=== PATIENT | female | born 1960 | race Caucasian/White ===

== ENCOUNTER 2018-03-19 11:44 | Outpatient (CLI) | payer OTHER ==
--- NOTE | 2018-03-19 14:15 | XRAY Report ---
Reason: PAIN IN THORACIC SPINE Procedure Date: 03/19/2018 Accession Number: [id number] / [id number] Procedure: XR - Thoracic Spine 2 View CPT Code: FULL RESULT: EXAM: THORACIC SPINE RADIOGRAPHY EXAM DATE: 03/19/2018 12:00 PM. CLINICAL HISTORY: Pain in thoracic spine. COMPARISON: None. TECHNIQUE: 2 views. FINDINGS: Alignment: No overt spondylolisthesis or scoliosis. Bones: No fractures or bone lesions. Disks: Mild marginal osteophytosis. Disk heights are generally maintained. Soft Tissues: Normal. The visualized lungs and cardiomediastinal silhouette are normal. IMPRESSION: Mild multilevel degenerative changes without overt compression fracture. RADIA
== END 2018-03-19 11:45 | disposition home or self-care (01) ==
LOC: DI 11:44
DX: M51.34 Other intervertebral disc degeneration, thoracic region (principal)
CPT/HCPCS: 72070

== ENCOUNTER 2018-06-16 09:32 | Emergency (ER) | payer MEDICAID, OTHER ==
[2018-06-16] MEDS ORDERED: DEXAMETHASONE 10 MG/ML VIAL PO STA (11:20)
--- NOTE | 2018-06-16 11:23 | ED Physician Documentation ---
PD HPI URI - Stated complaint Stated Complaint: COUGHING/CONGESTION - Chief complaint Chief Complaint: Resp - History obtained from History obtained from: Patient - History of Present Illness Timing - onset: How many days ago (4) Timing duration: Days (4) Timing details: Gradual onset, Still present Associated symptoms: Nasal congestion, Rhinorrhea, Sinus pain, Productive cough. No: Dyspnea Contributing factors: No: Sick contact Improves by: Rest, Medication Similar symptoms before: Has not had sx before Recently seen: Not recently seen - Additional information Additional information: 58-year-old smoking female has developed cough and congestion she has some sinus pressure and phlegm production. She denies any shortness of breath wheezing or chest pain. She has not had fever. She does not usually cough up phlegm. Review of Systems Constitutional: denies: Fever Eyes: denies: Decreased vision Ears: denies: Ear pain Nose: reports: Rhinorrhea / runny nose, Congestion, Sinus pressure / pain Throat: denies: Sore throat Cardiac: denies: Chest pain / pressure, Palpitations Respiratory: reports: Cough. denies: Dyspnea GI: denies: Vomiting PD PAST MEDICAL HISTORY - Past Surgical History Past Surgical History: Yes /CHIEF PSYCHOLOGY: Tubal ligation - Present Medications Home Medications: Ambulatory Orders Medication Instructions Recorded Confirmed Amox/Clav 875/125 [Augmentin] 1 each PO Q12H #20 tablet 06/16/18 Benzonatate [Tessalon Perle] 100 - 200 mg PO TID PRN #30 capsule 06/16/18 - Allergies Allergies/Adverse Reactions: Allergies Allergy/AdvReac Type Severity Reaction Status Date / Time No Known Drug Allergies Allergy Verified 06/16/18 09:51 - Social History Does the pt smoke?: Yes Smoking Status: Current every day smoker Does the pt drink ETOH?: No Does the pt have substance abuse?: No - Immunizations Immunizations are current?: Yes PD ED PE NORMAL - Vitals Vital signs reviewed: Yes (hypertensive mild ) - General General: Alert and oriented X 3, No acute distress, Well developed/nourished, Other (Smells heavily of tobacco.) - HEENT HEENT: Atraumatic, PERRL, EOMI, Pharynx benign, Other (Right TM is inflamed in the basement with disortion of the landmarks. The left is clear. There is sinus point tenderness to the left maxillary sinus and the right is non-tender. ) - Neck Neck: Supple, no meningeal sign, No bony TTP - Cardiac Cardiac: RRR, No murmur - Respiratory Respiratory: No respiratory distress, Other (scattered wheezes low pitched with good air movement. 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, No motor deficit, No sensory deficit, Normal speech Eye Opening: Spontaneous Motor: Obeys Commands Verbal: Oriented GCS Score: 15 - Psych Psych: Normal mood, Normal affect Results - Vitals Vitals: Vital Signs - 24 hr 06/16/18 09:49 Temperature 36.2 C L Heart Rate 90 Respiratory 18 Rate Blood Pressure 132/84 H O2 Saturation 94 Oxygen O2 Source Room air PD MEDICAL DECISION MAKING - ED course Complexity details: considered differential, d/w patient ED course: 58-year-old female with productive cough has otitis and sinusitis on exam she is administered dexamethasone 10 mg orally we will place her on some Augmentin and provide some Tessalon Perles. Departure - Departure Disposition: 01 Home, Self Care Clinical Impression: Otitis media Qualifiers: Otitis media type: suppurative Chronicity: acute Laterality: right Recurrence: not specified as recurrent Spontaneous tympanic membrane rupture: without spontaneous rupture Qualified Code(s): H66.001 - Acute suppurative otitis media without spontaneous rupture of ear drum, right ear Sinusitis Qualifiers: Sinusitis location: maxillary Chronicity: acute Recurrence: not specified as recurrent Qualified Code(s): J01.00 - Acute maxillary sinusitis, unspecified Condition: Stable Instructions: ED Sinusitis Abx Tx, ED Otitis Media Acute Adult Follow-Up: [facility] [Provider Group] Prescriptions: Amox/Clav 875/125 [Augmentin] 1 each PO Q12H #20 tablet Benzonatate [Tessalon Perle] 100 - 200 mg PO TID PRN #30 capsule PRN Reason: Cough
[2018-06-16 11:35] VITALS: BP 155/80
== END 2018-06-16 11:32 | disposition home or self-care (01) ==
LOC: ED 09:32
DX: H66.001 Acute suppurative otitis media without spontaneous rupture of ear drum, right ear (principal); J01.00 Acute maxillary sinusitis, unspecified; F17.200 Nicotine dependence, unspecified, uncomplicated
CPT/HCPCS: 99283

== ENCOUNTER 2018-10-04 08:14 | Outpatient (CLI) | payer MEDICAID ==
--- NOTE | 2018-10-04 10:07 | CT Report ---
Reason: NICOTINE DEPENDENCY Procedure Date: 10/04/2018 Accession Number: [id number] / [id number] Procedure: CT - Low Dose Lung Cancer Screen CPT Code: FULL RESULT: EXAM CT LUNG SCREEN EXAM DATE: 10/04/2018 08:35 AM. HISTORY: 58-year-old patient with [id number] smoking history. Currently smoking: Yes. COMPARISON: None. TECHNIQUE: CT examination of the entire thorax without contrast was performed using low-dose technique. Thin section coronal, axial, sagittal and MIP axial images were obtained. In accordance with CT protocol optimization, one or more of the following dose reduction techniques were utilized for this exam: automated exposure control, adjustment of mA and/or KV based on patient size, or use of iterative reconstructive technique. FINDINGS: Nodules: Right upper lobe: None. Right middle lobe: None. Right lower lobe: 3 mm fissure based nodule image 105 series 5. Left upper lobe: None. Left lower lobe: None. Emphysema: Mild. Pleura: Right apical pleural thickening, 0.4 thick and 2.1 cm wide on image 50 series 7. Aorta: Unremarkable. Mediastinum: Unremarkable. Coronary calcifications: None. Other pulmonary findings: None. Other extrapulmonary findings: None. IMPRESSION: Lung-RADS ASSESSMENT CATEGORY: 2 - benign appearance. Probability of malignancy: Less than 1% RECOMMENDATION: Continue annual screening low-dose chest CT as per lung RADS guidelines. RADIA
== END 2018-10-04 08:15 | disposition home or self-care (01) ==
LOC: DI 08:14
PROVIDERS: ATTEND Nurse Practitioner
DX: F17.210 Nicotine dependence, cigarettes, uncomplicated (principal); R91.1 Solitary pulmonary nodule; J43.9 Emphysema, unspecified

== ENCOUNTER 2019-02-10 07:36 | Emergency (ER) | payer MEDICAID ==
[2019-02-10 07:48] VITALS: BP 136/75
--- NOTE | 2019-02-10 08:09 | ED Physician Documentation ---
PD HPI URI - Stated complaint Stated Complaint: COUGH - Chief complaint Chief Complaint: Resp - History obtained from History obtained from: Patient - History of Present Illness Timing - onset: How many days ago (5) Timing duration: Days (5) Timing details: Abrupt onset, Still present (worsening) Associated symptoms: Chills, Sinus pain, Sore throat, Productive cough. No: Fever, Chest pain, Dyspnea, NVD Contributing factors: No: Sick contact, COPD / asthma Improves by: No: Medication (cough meds and Ricola) Worsened by: Activity Recently seen: Not recently seen Review of Systems Constitutional: reports: Chills, Myalgias. denies: Fever Nose: reports: Congestion. denies: Rhinorrhea / runny nose Throat: denies: Sore throat Cardiac: denies: Chest pain / pressure Respiratory: reports: Dyspnea, Cough. denies: Wheezing GI: denies: Nausea, Vomiting, Diarrhea Skin: denies: Rash PD PAST MEDICAL HISTORY - Past Medical History Past Medical History: No Cardiovascular: None Respiratory: None - Past Surgical History Past Surgical History: Yes /MANAGER SUPPORT: Tubal ligation - Present Medications Home Medications: Ambulatory Orders Medication Instructions Recorded Confirmed Amox/Clav 875/125 [Augmentin] 1 each PO Q12H #20 tablet 06/16/18 Benzonatate [Tessalon Perle] 100 - 200 mg PO TID PRN #30 capsule 06/16/18 Benzonatate [Tessalon Perle] 100 - 200 mg PO TID PRN #30 capsule 02/10/19 Doxycycline Hyclate 100 mg PO BID #20 capsule 02/10/19 dexAMETHasone [Decadron] 4 mg PO DAILY #7 tablet 02/10/19 guaiFENesin/CODEINE [Robitussin AC] 10 ml PO Q6H PRN #240 ml 02/10/19 - Allergies Allergies/Adverse Reactions: Allergies Allergy/AdvReac Type Severity Reaction Status Date / Time No Known Drug Allergies Allergy Verified 06/16/18 09:51 - Living Situation Living Situation: reports: With spouse/s.o. Living Arrangement: reports: At home - Social History Does the pt smoke?: Yes Smoking Status: Current every day smoker Does the pt drink ETOH?: No Does the pt have substance abuse?: No - Immunizations Immunizations are current?: Yes PD ED PE NORMAL - Vitals Vital signs reviewed: Yes - General General: Alert and oriented X 3, No acute distress, Well developed/nourished - HEENT HEENT: Ears normal, Pharynx benign - Neck Neck: Supple, no meningeal sign, No adenopathy - Cardiac Cardiac: RRR, No murmur - Respiratory Respiratory: No respiratory distress, Clear bilaterally - Derm Derm: Normal color, Warm and dry - Extremities Extremities: No edema, No calf tenderness / cord - Neuro Neuro: Alert and oriented X 3, No motor deficit, Normal speech Results - Vitals Vitals: Vital Signs - 24 hr 02/10/19 07:45 Temperature 36.6 C Heart Rate 71 Respiratory 17 Rate Blood Pressure 136/75 H O2 Saturation 97 Oxygen O2 Source Room air PD MEDICAL DECISION MAKING - ED course Complexity details: considered differential (URI symptoms which have persisted and now with bronchitis type symptoms), d/w patient Departure - Departure Disposition: 01 Home, Self Care Clinical Impression: Upper respiratory infection Qualifiers: URI type: unspecified URI Qualified Code(s): J06.9 - Acute upper respiratory infection, unspecified Condition: Stable Record reviewed to determine appropriate education?: Yes Instructions: ED Upper Resp Infec Abx Tx Follow-Up: Ebonie Wayne DNP [Primary Care Provider] - Prescriptions: Benzonatate [Tessalon Perle] 100 - 200 mg PO TID PRN #30 capsule PRN Reason: Cough dexAMETHasone [Decadron] 4 mg PO DAILY #7 tablet Doxycycline Hyclate 100 mg PO BID #20 capsule guaiFENesin/CODEINE [Robitussin AC] 10 ml PO Q6H PRN #240 ml PRN Reason: Cough Comments: Stay well-hydrated. Tylenol or ibuprofen if needed for pains and fevers. Use benzonatate as needed for cough suppression. Continue lozenges as needed as well. These symptoms commonly are from viral illnesses and we treat the symptoms with Decadron steroid for inflammation of the sinus and airway. This will help quite a bit. Add codeine cough medicine if needed. Some of your description may suggest bacterial infection so we can add an antibiotic as well doxycycline twice daily for a week. Recheck if not improving well over the next several days and return if worsening. You may have some persistent cough and a little congestion for even a week or 2 afterward but generally be feeling better Discharge Date/Time: 02/10/19 08:47
[2019-02-10] MEDS ORDERED: BENZONATATE 100 MG CAPSULE PO STA (08:34)
[2019-02-10] MEDS ORDERED: CHERRY SYRUP 10 ML UDC PO ONE (08:34)
[2019-02-10] MEDS ORDERED: DEXAMETHASONE 10 MG/ML VIAL PO STA (08:34)
[2019-02-10] MEDS ORDERED: DOXYCYCLINE 100 MG TABLET PO STA (08:34)
[2019-02-10] MEDS ORDERED: ACETAMINOPHEN 325 MG TABLET PO STA (08:34)
== END 2019-02-10 08:47 | disposition home or self-care (01) ==
LOC: ED 07:36
DX: J06.9 Acute upper respiratory infection, unspecified (principal); F17.200 Nicotine dependence, unspecified, uncomplicated
CPT/HCPCS: 99283; A9270

== ENCOUNTER 2021-02-19 08:10 | Outpatient (CLI) | payer MEDICAID | END 2021-02-19 23:59 | disposition home or self-care (01) | LOC: LAB.N 08:10 | PROVIDERS: ATTEND Family Medicine | DX: J06.9 Acute upper respiratory infection, unspecified (principal); Z20.822 Contact with and (suspected) exposure to COVID-19 ==

== ENCOUNTER 2021-04-18 10:07 | Outpatient (CLI) | payer MEDICAID | END 2021-04-18 23:59 | disposition home or self-care (01) | LOC: LAB.N 10:07 | PROVIDERS: ATTEND Physician Assistant Medical | DX: R05.9 Cough, unspecified (principal); Z20.822 Contact with and (suspected) exposure to COVID-19 ==

== ENCOUNTER 2022-10-02 09:10 | Outpatient (CLI) | payer MEDICAID ==
--- NOTE | 2022-10-02 15:28 | DEXA Report ---
PROCEDURE: Dexa Spine and/or Hip INDICATIONS: NICOTINE DEPENDENCY, POSTMENOPAUSAL TECHNIQUE: Dual energy x-ray absorptiometry (DXA) was performed on a [employer] System. Regions measur ed are the AP Spine, femoral neck, and if needed forearm. COMPARISON: None FINDINGS: Lumbar Spine: Bone Mineral Density 1.050 g/cm/cm,T score -1.1. Osteopenia. Left Femoral Neck: Bone Mineral Density 0.848 g/cm/cm, T score -1.4. Osteopenia. Left Hip: Bone Mineral Density 0.884 g/cm/cm,T score -1.0. Normal. (T score greater or equal to -1.0: NORMAL) (T score from -1.1 to -2.4: OSTEOPENIA) (T score less than or equal to -2.5 to: OSTEOPOROSIS) Impression: By WHO criteria, this patient has low bone density (osteopenia). Patients with diagnosis of osteoporosis or osteopenia should have regular bone mineral density assess ment. For those eligible for Medicare, routine testing is allowed once every 2 years. Testing frequ ency can be increased for patients who have rapidly progressing disease or for those who are receivin g medical therapy to restore bone mass. Reviewed by: Anton Pearl MD on 10/02/2022 3:27 PM PDT Approved by: Anton Pearl MD on 10/02/2022 3:27 PM PDT Station ID: [id number]
--- NOTE | 2022-10-02 22:53 | CT Report ---
PROCEDURE: Low Dose Lung Cancer Screen INDICATIONS: NICOTINE DEPENDENCY, POSTMENOPAUSAL TECHNIQUE: Noncontrast low-dose axial images were acquired from the pulmonary apices to the posterior costophren ic angles. Multiplanar MIP reformats were then reconstructed. For radiation dose reduction, the follo wing was used: automated exposure control, adjustment of mA and/or kV according to patient size. COMPARISON: 10/04/2018 FINDINGS: Image quality: Excellent. Prior cancer history: Unsure Lungs and pleura: No pleural effusions. No pneumothorax. No suspicious pulmonary nodules which requi re follow up. Mild bilateral lower lobe and right middle lobe bronchial wall thickening without bronc hiectasis. Tiny patchy consolidations present centrally in the right middle lobe. Mediastinum: Heart size is normal. No pericardial effusions. No mediastinal adenopathy by size criter ia. No large vessel abnormality. Normal esophagus with a tiny hiatal hernia. Chest wall and lower neck: Thyroid is unremarkable. No axillary or supraclavicular adenopathy by size . Bones: No aggressive osseous abnormality. Upper Abdomen: Small calcification within the gallbladder. Upper abdominal views are otherwise normal . IMPRESSION: Lung RAD: 1 - Negative. Recommendation: Continue annual screening in 12 Months with LDCT Non-Lung Significant Findings: None. Mild bronchial wall thickening consistent with COPD history. Cholelithiasis. Reviewed by: Aby Wright MD on 10/02/2022 9:51 PM CELINA Approved by: Aby Wright MD on 10/02/2022 9:51 PM CELINA Station ID: [id number]
== END 2022-10-02 09:11 | disposition home or self-care (01) ==
LOC: DI 09:10
PROVIDERS: ATTEND Nurse Practitioner Family
DX: Z12.2 Encounter for screening for malignant neoplasm of respiratory organs (principal); Z78.0 Asymptomatic menopausal state; K80.20 Calculus of gallbladder without cholecystitis without obstruction; M85.89 Other specified disorders of bone density and structure, multiple sites; F17.200 Nicotine dependence, unspecified, uncomplicated; Z00.00 Encounter for general adult medical examination without abnormal findings; R03.0 Elevated blood-pressure reading, without diagnosis of hypertension
CPT/HCPCS: 36415; 80053; 80061; 83036; 83721; 84443

== ENCOUNTER 2022-10-02 10:08 | Outpatient (CLI) | payer MEDICAID ==
[2022-10-02 12:01] LABS: BASOPHILS % (AUTO) 0.9 %; EOSINOPHILS # (AUTO) 0.1 10^3/uL (0.0-0.7); EOSINOPHILS % (AUTO) 2.8 %; HCT - HEMATOCRIT 42.3 % (37.0-47.0); LYMPHOCYTES # (AUTO) 1.7 10^3/uL (1.5-3.5); LYMPHOCYTES % (AUTO) 37.2 %; MEAN CORPUSCULAR HEMOGLOBIN 31.5 pg (27.0-31.0); MEAN CORPUSCULAR HGB CONC 33.1 g/dL (32.0-36.0); MEAN CORPUSCULAR VOLUME 95.1 fL (81.0-99.0); MEAN PLATELET VOLUME 8.9 fL (7.9-10.8); MONOCYTES # (AUTO) 0.3 10^3/uL (0.0-1.0); MONOCYTES % (AUTO) 7.3 %; NEUTROPHILS # (AUTO) 2.4 10^3/uL (1.5-6.6); NEUTROPHILS % (AUTO) 51.6 %; PLT - PLATELET COUNT 213 10^3/uL (130-450); RED BLOOD COUNT 4.45 10^6/uL (4.20-5.40); RED CELL DISTRIBUTION WIDTH 13.2 % (12.0-15.0); WHITE BLOOD COUNT 4.7 x10^3/uL (4.8-10.8)
[2022-10-02 12:26] LABS: ALBUMIN 4.4 g/dL (3.2-5.5); ALBUMIN/GLOBULIN RATIO 1.4 (1.0-2.2); ALKALINE PHOSPHATASE 80 IU/L (42-121); ALT ALANINE AMINOTRANSFERASE 15 IU/L (10-60); AST ASPARTATE AMINOTRANSFERASE 21 IU/L (10-42); BILIRUBIN,TOTAL 0.4 mg/dL (0.2-1.0); BUN - BLOOD UREA NITROGEN 12 mg/dL (6-20); CALCIUM 9.3 mg/dL (8.5-10.3); CARBON DIOXIDE - CO2 27 mmol/L (21-32); CHLORIDE 106 mmol/L (101-111); CHOL/HDL RATIO 3.5 (<4.4); CHOLESTEROL 184 mg/dL; CREATININE 0.7 mg/dL (0.4-1.0); GFR - MDRD 85 (>89); GLUCOSE 103 mg/dL (70-100); HDL CHOLESTEROL 52 mg/dL; LDL CHOLESTEROL,CALCULATED 99 mg/dL; LDL/HDL RATIO 1.9 (<4.4); POTASSIUM 4.6 mmol/L (3.5-5.0); SODIUM 139 mmol/L (135-145); TOTAL PROTEIN 7.6 g/dL (6.7-8.2); TRIGLYCERIDES 167 mg/dL; VLDL CHOLESTEROL 33 mg/dL
[2022-10-02 12:38] LABS: THYROID STIMULATING HORMONE 1.76 uIU/mL (0.34-5.60)
[2022-10-02 13:14] LABS: ESTIMATED AVERAGE GLUCOSE 108 mg/dL (70-100); HEMOGLOBIN A1c% 5.4 % (4.27-6.07)
== END 2022-10-02 10:09 | disposition home or self-care (01) ==
LOC: LAB.N 10:08
PROVIDERS: ATTEND Nurse Practitioner Family
DX: Z00.00 Encounter for general adult medical examination without abnormal findings (principal); R03.0 Elevated blood-pressure reading, without diagnosis of hypertension; F17.200 Nicotine dependence, unspecified, uncomplicated
CPT/HCPCS: 36415; 80053; 80061; 83036; 83721; 84443